=== PATIENT | female | born 1945 | race Caucasian/White ===

== ENCOUNTER 2020-09-10 00:45 | Emergency (ER) | payer MEDICARE ==
[2020-09-10] MEDS ORDERED: Silver Sulfadiazine 50 GM TUBE ONE (01:13)
[2020-09-10] MEDS ORDERED: Morphine 4 MG/ML VIAL ONE (01:29)
[2020-09-10 01:51] LABS: Bilirubin Neg (Negative); Blood, Urine 25 (Negative); Clarity Slightly Cloudy (Clear); Glucose, Urine (Dipstick) Normal (Negative); Ketone, Urine 5 mg/dL (Negative); Leukocyte 500 (Negative); Nitrite Negative (Negative); Protein, Urine (Dipstick) 15 mg/dl (Neg-Trace); Urobilinogen Normal mg/dL (Less than 2)
[2020-09-10 02:10] LABS: Bacteria/HPF 1+ HPF (None Seen); RBC/HPF 0-3 HPF (0-3); Renal Epithelial 0-3 HPF (None Seen); Squamous Epithelial 0-3 HPF (0-3); WBC/HPF 21-50 HPF (0-3)
== END 2020-09-10 02:52 | disposition home or self-care (01) ==
LOC: CSHERS 00:45
DX: N39.0 Urinary tract infection, site not specified (principal); L25.3 Unspecified contact dermatitis due to other chemical products; E78.5 Hyperlipidemia, unspecified; E78.00 Pure hypercholesterolemia, unspecified; K21.9 Gastro-esophageal reflux disease without esophagitis; M06.9 Rheumatoid arthritis, unspecified; Z79.899 Other long term (current) drug therapy
CPT/HCPCS: 81003; 81015; 87077; 87086; 87186; 96374; J2270

== ENCOUNTER 2020-09-17 20:07 | Emergency (ER) | payer MEDICARE ==
[2020-09-17] MEDS ORDERED: Ketorolac Tromethamine 30 MG/ML VIAL ONE (22:40)
[2020-09-17] MEDS ORDERED: Morphine 4 MG/ML VIAL ONE (22:40)
[2020-09-17 22:52] LABS: Bilirubin 6 (Negative); Blood, Urine 25 (Negative); Clarity Clear (Clear); Glucose, Urine (Dipstick) Normal (Negative); Ketone, Urine 50 mg/dL (Negative); Leukocyte 500 (Negative); Nitrite Positive (Negative); Protein, Urine (Dipstick) 30 mg/dl (Neg-Trace)
[2020-09-17 23:01] LABS: Bacteria/HPF 1+ HPF (None Seen); Mucous/LPF 2+ LPF (<2+); RBC/HPF 0-3 HPF (0-3); Squamous Epithelial 0-3 HPF (0-3); Transitional Epithelial 0-3 HPF (None Seen); WBC/HPF 21-50 HPF (0-3)
[2020-09-17 23:43] LABS: ALT (SGPT) 23 U/L (8-55); AST (SGOT) 22 U/L (5-34); Albumin 3.5 g/dL (3.4-4.8); Alkaline Phosphatase 47 U/L (40-110); Anion Gap 16 mmol/L (10-20); BUN (Urea Nitrogen) 15 mg/dL (9.8-20.1); Bilirubin, Total 0.7 mg/dL (0.2-1.2); Calc. Creatinine Clearance 0 mL/min (70-130); Calcium 8.8 mg/dL (7.8-10.44); Carbon Dioxide 24 mmol/L (23-31); Chloride 98 mmol/L (98-107); Globulin 2.6 g/dL (2.4-3.5); Glucose 92 mg/dL (83-110); Potassium 3.5 mmol/L (3.5-5.1); Protein, Total 6.1 g/dL (5.8-8.1); Sodium 134 mmol/L (136-145)
[2020-09-17 23:50] LABS: #Eosinphils 0.1 10x3/uL (0.0-0.5); #Neutrophils 1.8 10x3/uL (1.5-8.4); %Basophils 0.6 % (0.0-2.0); %Eosinophils 3.5 % (0.0-6.0); %Lymphocytes 10.1 % (18.0-47.0); %Monocytes 29.3 % (0.0-10.0); %Neutrophils 52.7 % (40.0-75.0); Hemoglobin 9.2 g/dL (12.0-15.5); Mean Corpuscular HGB CONC 33.6 g/dL (32.0-36.0); Mean Corpuscular Hemoglobin 32.4 pg (27.0-33.0); Mean Corpuscular Volume 96.5 fl (81.6-98.3); Mean Platelet Volume 10.7 fl (7.4-10.4); Platelet Count 107 10x3/uL (150-450); Red Blood Cell (RBC) Count 2.84 10x6/uL (3.90-5.03); White Blood Cell (WBC) Count 3.5 10x3/uL (3.5-10.5)
[2020-09-18 00:51] LABS: Anisocytosis SLIGHT = 6-15 cells (100X) (0-5/hpf); Microcytosis SLIGHT = 6-15 cells (100X) (0-5/hpf); Platelet Clumps SLIGHT; Platelet Morphology Comment Appears Decreased
== END 2020-09-18 01:40 | disposition home or self-care (01) ==
LOC: CSHERS 20:07
DX: L59.8 Other specified disorders of the skin and subcutaneous tissue related to radiation (principal); K62.6 Ulcer of anus and rectum; N39.0 Urinary tract infection, site not specified; E78.5 Hyperlipidemia, unspecified; K21.9 Gastro-esophageal reflux disease without esophagitis; Z79.899 Other long term (current) drug therapy
CPT/HCPCS: 36415; 80053; 81003; 81015; 83605; 85025; 96374; 96375; J1885; J2270

== ENCOUNTER 2021-06-30 12:53 | Outpatient (CLI) | payer MEDICARE | END 2021-06-30 12:54 | disposition home or self-care (01) | LOC: CSHMAMMO 12:53 | PROVIDERS: ATTEND Family Medicine | DX: Z12.31 Encounter for screening mammogram for malignant neoplasm of breast (principal); Z13.820 Encounter for screening for osteoporosis; N95.9 Unspecified menopausal and perimenopausal disorder; M85.851 Other specified disorders of bone density and structure, right thigh; M85.852 Other specified disorders of bone density and structure, left thigh; Z85.89 Personal history of malignant neoplasm of other organs and systems | CPT/HCPCS: 77063; 77067; 77080 ==

== ENCOUNTER 2022-07-21 16:11 | Emergency (ER) | payer MEDICARE ==
[2022-07-21] MEDS ORDERED: Acetaminophen 500 MG TAB ONE (17:14)
[2022-07-21 17:35] LABS: #Eosinphils 0.1 10x3/uL (0.0-0.5); #Monocytes 0.8 10x3/uL (0.0-1.1); #Neutrophils 4.6 10x3/uL (1.5-8.4); %Basophils 0.5 % (0.0-2.0); %Lymphocytes 11.3 % (18.0-47.0); %Monocytes 12.9 % (0.0-10.0); %Neutrophils 72.8 % (40.0-75.0); Hemoglobin 11.9 g/dL (12.0-15.5); Mean Corpuscular HGB CONC 33.3 g/dL (32.0-36.0); Mean Corpuscular Hemoglobin 30.3 pg (27.0-33.0); Mean Corpuscular Volume 90.8 fl (81.6-98.3); Mean Platelet Volume 10.8 fl (7.4-10.4); Platelet Count 205 10x3/uL (150-450); RBC Distribution Width 12.5 % (11.5-14.5); Red Blood Cell (RBC) Count 3.93 10x6/uL (3.90-5.03); White Blood Cell (WBC) Count 6.4 10x3/uL (3.5-10.5)
[2022-07-21 17:42] LABS: ALT (SGPT) 19 U/L (8-55); AST (SGOT) 18 U/L (5-34); Alkaline Phosphatase 75 U/L (40-110); Anion Gap 12 mmol/L (10-20); BUN (Urea Nitrogen) 25 mg/dL (9.8-20.1); Bilirubin, Total 0.6 mg/dL (0.2-1.2); Calc. Creatinine Clearance 0 mL/min (70-130); Calcium 9.1 mg/dL (7.8-10.44); Carbon Dioxide 26 mmol/L (23-31); Chloride 105 mmol/L (98-107); Estimated GFR 59; Globulin 2.7 g/dL (2.4-3.5); Glucose 108 mg/dL (83-110); Potassium 3.9 mmol/L (3.5-5.1); Protein, Total 6.7 g/dL (5.8-8.1); Sodium 139 mmol/L (136-145)
== END 2022-07-21 20:22 | disposition home or self-care (01) ==
LOC: CSHERS 16:11
DX: R51.9 Headache, unspecified (principal); S40.012A Contusion of left shoulder, initial encounter; E78.00 Pure hypercholesterolemia, unspecified; K21.9 Gastro-esophageal reflux disease without esophagitis
CPT/HCPCS: 70450; 80053; 85025

== ENCOUNTER 2024-04-30 09:10 | Day surgery (SDC) | payer MEDICARE ==
[2024-04-29 14:32] VITALS: BMI 36.3
[2024-04-30] MEDS ORDERED: Sevoflurane 250 ML INH ANEST BOTTLE ONE (09:44)
[2024-04-30] MEDS ORDERED: PROPOFOL 20 ML ONE (13:04)
[2024-04-30] MEDS ORDERED: Lidocaine 1% PF 5 ML VIAL ONE (13:04)
[2024-04-30] MEDS ORDERED: fentaNYL 50 mcg/mL 1 mL Vial ONE (13:05)
[2024-04-30] MEDS ORDERED: Bupivacaine PF 0.5% 30 ML VIAL ONE (13:34)
[2024-04-30] MEDS ORDERED: Ondansetron PF 4 MG/2 ML Vial IVP PRN (14:00)
[2024-04-30] MEDS ORDERED: Promethazine HCl 25 MG/ML VIAL IM PRN (14:00)
[2024-04-30] MEDS ORDERED: Ropivacaine 0.2% 550 ML 550 ML NERVE BLCK SCH (14:00)
[2024-04-30] MEDS ORDERED: Zolpidem Tartrate 5 MG TAB PO PRN (14:00)
[2024-04-30] MEDS ORDERED: ePHEDrine Sulfate 50 MG/10 ML VIAL ONE (14:02)
[2024-04-30] MEDS ORDERED: CEFAZOLIN 1 GM VIAL ONE (14:04)
[2024-04-30] MEDS ORDERED: Dexamethasone 4 mg/ml Vial ONE (14:05)
[2024-04-30] MEDS ORDERED: CEFAZOLIN 2 GM VIAL ONE (14:07)
[2024-04-30] MEDS ORDERED: Ondansetron PF 4 MG/2 ML Vial ONE (14:51)
[2024-04-30] MEDS ORDERED: HYDROcodone/Acetaminophen 5/325 mg Tablet ONE (16:55)
== END 2024-04-30 17:45 | disposition home or self-care (01) ==
LOC: CSHSDC 09:10
PROVIDERS: ATTEND Podiatrist Foot & Ankle Surgery
DX: M20.40 Other hammer toe(s) (acquired), unspecified foot (principal); M20.10 Hallux valgus (acquired), unspecified foot; M77.40 Metatarsalgia, unspecified foot; S93.121A Dislocation of metatarsophalangeal joint of right great toe, initial encounter
CPT/HCPCS: 28285; 28292; 73620; 73630; A4306; C1713 ×3; J0665; J1100; J2405; J2704; J2795; J3010; J0690

== ENCOUNTER 2025-03-24 09:15 | Outpatient (CLI) | payer MEDICARE ==
[2025-03-24 10:21] LABS: Hematocrit 36.3 % (34.9-44.5); Hemoglobin 11.6 g/dL (12.0-15.5); Mean Corpuscular Hemoglobin 29.7 pg (27.0-33.0); Mean Corpuscular Volume 93.1 fL (81.6-98.3); Platelet Count 180 10x3/uL (150-450); Red Blood Cell (RBC) Count 3.90 10x6/uL (3.90-5.03); White Blood Cell (WBC) Count 6.72 10x3/uL (3.5-10.5)
[2025-03-24 12:20] LABS: Anion Gap 11 mmol/L (10-20); BUN (Urea Nitrogen) 23 mg/dL (9.8-20.1); Calc. Creatinine Clearance 0 mL/min (70-130); Calcium 8.7 mg/dL (7.8-10.44); Carbon Dioxide 28 mmol/L (23-31); Chloride 108 mmol/L (98-107); Glucose 91 mg/dL (83-110); Potassium 3.8 mmol/L (3.5-5.1); Sodium 143 mmol/L (136-145)
== END 2025-03-24 09:16 | disposition home or self-care (01) ==
LOC: CSHLAB 09:15
PROVIDERS: ATTEND Podiatrist Foot & Ankle Surgery
DX: Z01.818 Encounter for other preprocedural examination (principal); T84.84XA Pain due to internal orthopedic prosthetic devices, implants and grafts, initial encounter; M20.40 Other hammer toe(s) (acquired), unspecified foot; M79.676 Pain in unspecified toe(s)
CPT/HCPCS: 80048; 85027; 93005; 93010

== ENCOUNTER 2025-03-25 10:13 | Day surgery (SDC) | payer MEDICARE ==
[2025-03-24 09:50] VITALS: BMI 37.5
[2025-03-25] MEDS ORDERED: CEFAZOLIN 2 GM VIAL ONE (14:30)
[2025-03-25] MEDS ORDERED: PROPOFOL 20 ML ONE (14:31)
[2025-03-25] MEDS ORDERED: Lidocaine 1% PF 5 ML VIAL ONE (14:31)
[2025-03-25] MEDS ORDERED: Glycopyrrolate 0.2 MG/ML 5 ML SYRINGE ONE (15:19)
[2025-03-25] MEDS ORDERED: Ondansetron PF 4 MG/2 ML Vial ONE (15:26)
== END 2025-03-25 17:15 | disposition home or self-care (01) ==
LOC: CSHSDC 10:13
PROVIDERS: ATTEND Podiatrist Foot & Ankle Surgery
PROC: 0QBQ0ZZ Excision of Right Toe Phalanx, Open Approach (ICD-10-PCS; principal; 2025-03-25)
DX: M89.9 Disorder of bone, unspecified (principal); T84.84XA Pain due to internal orthopedic prosthetic devices, implants and grafts, initial encounter; M20.42 Other hammer toe(s) (acquired), left foot; I11.9 Hypertensive heart disease without heart failure; L85.1 Acquired keratosis [keratoderma] palmaris et plantaris; B35.1 Tinea unguium; Z87.59 Personal history of other complications of pregnancy, childbirth and the puerperium; Z90.89 Acquired absence of other organs; Z90.710 Acquired absence of both cervix and uterus; Z88.5 Allergy status to narcotic agent; Y83.1 Surgical operation with implant of artificial internal device as the cause of abnormal reaction of the patient, or of later complication, without mention of misadventure at the time of the procedure
CPT/HCPCS: 28124 ×2; J0665; J1100; J2704; J3010

== ENCOUNTER 2025-04-23 12:10 | Outpatient (CLI) | payer MEDICARE | END 2025-04-23 12:11 | disposition home or self-care (01) | LOC: CSHMAMMO 12:10 | PROVIDERS: ATTEND Student in an Organized Health Care Education/Training Program | DX: Z12.31 Encounter for screening mammogram for malignant neoplasm of breast (principal); Z85.89 Personal history of malignant neoplasm of other organs and systems | CPT/HCPCS: 77063; 77067 ==